=== PATIENT | male | born 1995 | race African-American/Black ===

== ENCOUNTER 2017-11-22 10:15 | Emergency (ER) | payer MEDICAID, OTHER ==
[~2017-11-22] VITALS: Ht 180.3 cm; Wt 89.0 kg
[2017-11-22] MEDS ORDERED: IBUPROFEN 800MG TABLET PO ONE (11:00)
[2017-11-22 11:32] VITALS: BP 118/60
== END 2017-11-22 11:35 | disposition home or self-care (01) ==
LOC: ER 10:31
DX: S06.0X0A Concussion without loss of consciousness, initial encounter (principal); M62.830 Muscle spasm of back; M62.838 Other muscle spasm; V89.2XXA Person injured in unspecified motor-vehicle accident, traffic, initial encounter; Y93.89 Activity, other specified; Y92.410 Unspecified street and highway as the place of occurrence of the external cause; Y99.8 Other external cause status
CPT/HCPCS: 99282

== ENCOUNTER 2018-02-03 23:55 | Emergency (ER) | payer MEDICAID ==
[~2018-02-03] VITALS: Ht 180.3 cm; Wt 95.0 kg
[2018-02-04 00:23] VITALS: BP 127/73
== END 2018-02-04 01:15 | disposition left against medical advice (07) ==
LOC: ER 23:55
DX: Z53.21 Procedure and treatment not carried out due to patient leaving prior to being seen by health care provider (principal)

== ENCOUNTER 2019-12-01 10:39 | Emergency (ER) | payer MEDICAID ==
[~2019-12-01] VITALS: Ht 180.3 cm; Wt 109.0 kg
[2019-12-01] MEDS ORDERED: ACETAMINOPHEN 325MG TABLET PO ONE (11:30)
[2019-12-01 12:16] LABS: CLARITY URINE CLEAR (CLEAR); COLOR URINE YELLOW (YELLOW); KETONES URINE NEGATIVE (NEGATIVE); LEUKOCYTE ESTERASE URINE 1+ (NEGATIVE); NITRITE URINE NEGATIVE (NEGATIVE); OCCULT BLOOD URINE NEGATIVE (NEGATIVE); PROTEIN URINE NEGATIVE (NEGATIVE); UROBILINOGEN URINE 0.2 E.U./dL (0.2-1.0)
[2019-12-01 13:11] VITALS: BP 124/74
== END 2019-12-01 13:14 | disposition home or self-care (01) ==
LOC: ER 10:39
DX: N39.0 Urinary tract infection, site not specified (principal); F12.10 Cannabis abuse, uncomplicated; Z98.890 Other specified postprocedural states
CPT/HCPCS: 81003; 99283

== ENCOUNTER 2022-05-27 10:12 | Emergency (ER) | payer MEDICAID, OTHER ==
[~2022-05-27] VITALS: Ht 180.3 cm; Wt 100.0 kg
[2022-05-27 10:25] VITALS: BP 128/77
[2022-05-27] MEDS ORDERED: METHOCARBAMOL 500MG TABLET PO ONE (12:15)
[2022-05-27] MEDS ORDERED: KETOROLAC 60MG/2ML VIAL IM ONE (12:15)
[2022-05-27] MEDS ORDERED: NAPR-681 MT (13:21)
[2022-05-27] MEDS ORDERED: METH-773 MT (13:21)
[2022-05-27] MEDS ORDERED: LIDO1ADH23 TP (13:21)
== END 2022-05-27 13:35 | disposition home or self-care (01) ==
LOC: ER 10:12
DX: S16.1XXA Strain of muscle, fascia and tendon at neck level, initial encounter (principal); S39.012A Strain of muscle, fascia and tendon of lower back, initial encounter; V49.59XA Passenger injured in collision with other motor vehicles in traffic accident, initial encounter; Y93.89 Activity, other specified; Y92.89 Other specified places as the place of occurrence of the external cause; Y99.8 Other external cause status; F12.10 Cannabis abuse, uncomplicated
CPT/HCPCS: 96372; 99283; J1885